=== PATIENT | female | born 1930 | race Caucasian/White ===

== ENCOUNTER 2016-08-24 09:14 | Outpatient (CLI) | payer MEDICARE, BC | END 2016-08-24 09:15 | disposition EMS.NT | DX: S09.90XA Unspecified injury of head, initial encounter (principal); W01.0XXA Fall on same level from slipping, tripping and stumbling without subsequent striking against object, initial encounter; Y92.10 Unspecified residential institution as the place of occurrence of the external cause ==

== ENCOUNTER 2016-08-24 16:15 | Outpatient (CLI) | payer MEDICARE, BC | END 2016-08-24 16:16 | disposition home or self-care (01) | DX: N39.0 Urinary tract infection, site not specified (principal) ==

== ENCOUNTER 2016-10-14 08:00 | Outpatient (CLI) | payer MEDICARE, BC | END 2016-10-14 23:59 | LOC: LAB.WCP 08:00 | PROVIDERS: ATTEND Family Medicine | DX: R35.0 Frequency of micturition (principal) | CPT/HCPCS: 87086 ==

== ENCOUNTER 2017-01-21 08:00 | Outpatient (CLI) | payer MEDICARE, BC | END 2017-01-21 08:01 | disposition home or self-care (01) | LOC: LAB.WCP 08:00 | PROVIDERS: ATTEND Family Medicine | DX: N39.0 Urinary tract infection, site not specified (principal) | CPT/HCPCS: 87077; 87086 ==

== ENCOUNTER 2017-05-10 11:16 | Emergency (ER) | payer MEDICARE, BC ==
--- NOTE | 2017-05-10 12:15 | ED Physician Documentation ---
History of Present Illness - Stated complaint Stated Complaint: ALOC - Chief complaint Chief Complaint: General - History obtained from History obtained from: Patient, Family - History of Present Illness Timing: Today Pain level max: 0 Pain level now: 0 Improved by: nothing Worsened by: nothing - Additonal information Additional information: Patient is an 85-year-old female who has a history of dementia, lives at [facility]. She states that she is very fearful and anxious today. Family states this is happened her in the past. They were unsure what the cause was. At baseline she is knocking on other residents doors as well as eating dirt from the potted plants that she walks by them. 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 : None HEENT: None Psych: Anxiety Musculoskeletal: None - Past Surgical History Past Surgical History: No - Present Medications Home Medications: Ambulatory Orders Medication Instructions Recorded Confirmed Acetaminophen 325 mg PO TID 05/22/14 05/22/14 Felodipine [Felodipine ER] 10 mg PO DAILY 05/22/14 05/22/14 LORazepam [Ativan] 0.5 mg PO TID PRN 05/22/14 05/22/14 Lisinopril [Zestril] 20 mg PO DAILY 05/22/14 05/22/14 Mirtazapine 30 mg PO DAILY 05/22/14 05/22/14 Potassium Chloride 20 meq PO BID 05/22/14 05/22/14 Famotidine [Pepcid] 20 mg PO BID #30 tablet 05/28/14 Sucralfate [Carafate] 1 gm PO DAILY #0 tablet 05/28/14 Cephalexin [Keflex] 500 mg PO Q6H #28 capsule 05/10/17 - Allergies Allergies/Adverse Reactions: Allergies Allergy/AdvReac Type Severity Reaction Status Date / Time citalopram Allergy Unknown Verified 05/22/14 21:07 citalopram hydrobromide * Allergy Unknown Verified 05/22/14 21:07 [From Celexa] peanut Allergy Unknown Verified 05/22/14 21:07 Sulfa (Sulfonamide Allergy Unknown Verified 05/22/14 21:07 Antibiotics) - Social History Does the pt smoke?: No Smoking Status: Never smoker Does the pt drink ETOH?: No Does the pt have substance abuse?: No - Immunizations Immunizations are current?: Yes Immunizations: TDAP >10years/unknown - POLST Patient has POLST: Yes PD ED PE NORMAL - Vitals Vital signs reviewed: Yes - General General: No acute distress, Other (alert, interactive) - HEENT HEENT: Moist mucous membranes, Pharynx benign - Neck Neck: Supple, no meningeal sign - Cardiac Cardiac: RRR, Strong equal pulses - Respiratory Respiratory: No respiratory distress, Clear bilaterally - Abdomen Abdomen: Soft, Non tender, Non distended - Derm Derm: Warm and dry - Extremities Extremities: No edema, No calf tenderness / cord - Psych Psych: Normal mood, Normal affect Results - Vitals Vitals: Vital Signs - 24 hr 05/10/17 05/10/17 11:20 13:56 Temperature 37 C Heart Rate 94 82 Respiratory 18 16 Rate Blood Pressure 122/77 140/70 H O2 Saturation 98 Oxygen O2 Source Room air - Labs Labs: Laboratory Tests 05/10/17 05/10/17 05/10/17 12:45 12:50 12:50 WBC 8.2 RBC 3.99 L Hgb 12.4 Hct 36.9 L MCV 92.3 MCH 31.1 H MCHC 33.7 RDW 14.4 Plt Count 234 MPV 7.6 L Neut # 4.3 Lymph # 2.7 [place] # 0.8 Eos # 0.3 Baso # 0.1 Absolute Nucleated RBC 0.00 Nucleated RBC % 0.0 Sodium 139 Potassium 4.8 Chloride 105 Carbon Dioxide 25 Anion Gap 9.0 BUN 32 H Creatinine 1.2 H Estimated GFR (MDRD) 42 L Glucose 86 Calcium 10.7 H Total Bilirubin 0.6 AST 24 ALT 13 Alkaline Phosphatase 126 H Total Protein 7.5 Albumin 4.2 Globulin 3.3 Albumin/Globulin Ratio 1.3 Lipase 65 H Urine Color YELLOW Urine Clarity HAZY Urine pH 7.0 Ur Specific [place] 1.010 Urine Protein NEGATIVE Urine Glucose (UA) NEGATIVE Urine Ketones NEGATIVE Urine Occult Blood NEGATIVE Urine Nitrite POSITIVE H Urine Bilirubin NEGATIVE Urine Urobilinogen 0.2 (NORMAL) Ur Leukocyte Esterase TRACE H Urine RBC 0-5 Urine WBC >25 H Urine WBC Clumps PRESENT Ur Squamous Epith Cells NONE SEEN Urine Bacteria Many H Ur Microscopic Review INDICATED Urine Culture Comments INDICATED PD MEDICAL DECISION MAKING - ED course Complexity details: reviewed old records, reviewed results, re-evaluated patient , considered differential, d/w patient, d/w family ED course: Patient is an 85-year-old female who presents to the emergency department with altered mental status, worse than her baseline dementia. She is found to have a UTI. Will treat her for a UTI and follow-up with her doctor. She is well- appearing, nontoxic. Afebrile. No evidence of sepsis. Patient and family counseled regarding signs and symptoms for which I believe and urgent re- evaluation would be necessary. Patient with good understanding of and agreement to plan and is comfortable going home at this time This document was made in part using voice recognition software. While efforts are made to proofread this document, sound alike and grammatical errors may occur. Departure - Departure Disposition: 01 Home, Self Care Clinical Impression: UTI (urinary tract infection) Qualifiers: Urinary tract infection type: acute cystitis Hematuria presence: without hematuria Qualified Code(s): N30.00 - Acute cystitis without hematuria Altered mental status Qualifiers: Altered mental status type: transient alteration of awareness Qualified Code(s) : R40.4 - Transient alteration of awareness Condition: Good Instructions: ED UTI Cystitis Female Follow-Up: Manfred Garcia DO [Primary Care Provider] - Within 1 week Prescriptions: Cephalexin [Keflex] 500 mg PO Q6H #28 capsule Comments: Take all anitbiotics until gone. Return if you worsen. Discharge Date/Time: 05/10/17 13:57
[2017-05-10 13:01] LABS: BASOPHILS # (AUTO) 0.1 10^3/uL (0.0-0.1); BASOPHILS % (AUTO) 1.1 %; EOSINOPHILS # (AUTO) 0.3 10^3/uL (0.0-0.7); EOSINOPHILS % (AUTO) 3.7 %; HCT - HEMATOCRIT 36.9 % (37.0-47.0); HGB - HEMOGLOBIN 12.4 g/dL (12.0-16.0); LYMPHOCYTES # (AUTO) 2.7 10^3/uL (1.5-3.5); MEAN CORPUSCULAR HEMOGLOBIN 31.1 pg (27.0-31.0); MEAN CORPUSCULAR HGB CONC 33.7 g/dL (32.0-36.0); MEAN CORPUSCULAR VOLUME 92.3 fL (81.0-99.0); MEAN PLATELET VOLUME 7.6 fL (7.9-10.8); MONOCYTES # (AUTO) 0.8 10^3/uL (0.0-1.0); MONOCYTES % (AUTO) 9.5 %; NEUTROPHILS # (AUTO) 4.3 10^3/uL (1.5-6.6); NEUTROPHILS % (AUTO) 52.7 %; RED BLOOD COUNT 3.99 10^6/uL (4.20-5.40); RED CELL DISTRIBUTION WIDTH 14.4 % (12.0-15.0); UNCORRECTED WHITE BLOOD COUNT 8.2 x10^3/uL; WHITE BLOOD COUNT 8.2 x10^3/uL (4.8-10.8)
[2017-05-10 13:13] LABS: ALBUMIN/GLOBULIN RATIO 1.3 (1.0-2.2); BILIRUBIN,TOTAL 0.6 mg/dL (0.2-1.0); CALCIUM 10.7 mg/dL (8.5-10.3); CREATININE 1.2 mg/dL (0.4-1.0); POTASSIUM 4.8 mmol/L (3.5-5.0); TOTAL PROTEIN 7.5 g/dL (6.7-8.2)
[2017-05-10 13:17] LABS: BILIRUBIN,URINE NEGATIVE (NEGATIVE)
[2017-05-10 13:18] LABS: UA w/ MICROSCOPIC CHARGE YES
[2017-05-10] MEDS ORDERED: cefTRIAXone 1 GM VIAL IM STA (13:24)
[2017-05-10] MEDS ORDERED: LORazepam 0.5 MG TABLET PO STA (13:27)
[2017-05-10] MEDS ORDERED: LIDOCAINE 1% 2 ML VIAL ONE (13:35)
[2017-05-10 13:57] VITALS: BP 140/70
[2017-05-10 14:01] LABS: UR CULTURE IF IND INDICATED; WBC,URINE >25 /HPF (0-5)
== END 2017-05-10 13:57 | disposition home or self-care (01) ==
LOC: ED 11:16
DX: N30.00 Acute cystitis without hematuria (principal); I10 Essential (primary) hypertension; F03.90 Unspecified dementia, unspecified severity, without behavioral disturbance, psychotic disturbance, mood disturbance, and anxiety
CPT/HCPCS: 36415; 51701; 80053; 81001; 83690; 85025; 87086; 96372; 99283; 99284; A9270; 81003; 87077

== ENCOUNTER 2017-05-20 08:00 | Outpatient (CLI) | payer MEDICARE, BC | END 2017-05-20 23:59 | disposition home or self-care (01) | LOC: LAB.R 08:00 | PROVIDERS: ATTEND Family Medicine | DX: N39.0 Urinary tract infection, site not specified (principal) | CPT/HCPCS: 87077; 87086 ==

== ENCOUNTER 2017-06-21 08:46 | Outpatient (CLI) | payer MEDICARE, BC | END 2017-06-21 08:47 | disposition critical access hospital (66) | LOC: EMS 08:46 | PROVIDERS: ATTEND Surgery | DX: S09.90XA Unspecified injury of head, initial encounter (principal); W19.XXXA Unspecified fall, initial encounter; Y92.099 Unspecified place in other non-institutional residence as the place of occurrence of the external cause | CPT/HCPCS: A0425; A0429 ==

== ENCOUNTER 2017-06-21 09:03 | Emergency (ER) | payer MEDICARE, BC ==
--- NOTE | 2017-06-21 09:15 | ED Physician Documentation ---
History of Present Illness - Stated complaint Stated Complaint: FALL - Chief complaint Chief Complaint: Trauma Hd/Nk - Additonal information Additional information: hx from pt 85 female unwitnessed fall at asisted living R periorbital trauma EMS states facility said pt on blood thinner but not on med list pt does not recall the event - she says she does and then explains how she was playing bridge with the girls and was walking through the living room etc (but was alone in her room) she denies BURNETT neck pain CP AP numbness and weakness no recent fever cough NVD that she recalls POLST states DNR limited Review of Systems Constitutional: denies: Fever Ears: denies: Drainage/discharge Nose: denies: Epistaxis GI: denies: Abdominal Pain, Nausea, Vomiting : denies: Dysuria Musculoskeletal: denies: Neck pain, Back pain, Extremity pain, Joint pain Neurologic: reports: Head injury. 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 HEENT: None Psych: Anxiety Musculoskeletal: None - Past Surgical History Past Surgical History: No - Present Medications Home Medications: Ambulatory Orders Medication Instructions Recorded Confirmed Acetaminophen 325 mg PO TID 05/22/14 05/22/14 Felodipine [Felodipine ER] 10 mg PO DAILY 05/22/14 05/22/14 LORazepam [Ativan] 0.5 mg PO TID PRN 05/22/14 05/22/14 Lisinopril [Zestril] 20 mg PO DAILY 05/22/14 05/22/14 Mirtazapine 30 mg PO DAILY 05/22/14 05/22/14 Potassium Chloride 20 meq PO BID 05/22/14 05/22/14 Famotidine [Pepcid] 20 mg PO BID #30 tablet 05/28/14 Sucralfate [Carafate] 1 gm PO DAILY #0 tablet 05/28/14 Cephalexin [Keflex] 500 mg PO Q6H #28 capsule 05/10/17 - Allergies Allergies/Adverse Reactions: Allergies Allergy/AdvReac Type Severity Reaction Status Date / Time citalopram Allergy Unknown Verified 06/21/17 09:09 citalopram hydrobromide * Allergy Unknown Verified 06/21/17 09:09 [From Celexa] peanut Allergy Unknown Verified 06/21/17 09:09 Sulfa (Sulfonamide Allergy Unknown Verified 06/21/17 09:09 Antibiotics) - Social History Does the pt smoke?: No Smoking Status: Never smoker Does the pt drink ETOH?: No Does the pt have substance abuse?: No - Immunizations Immunizations are current?: Yes Immunizations: TDAP >10years/unknown - POLST Patient has POLST: Yes PD ED PE NORMAL - Vitals Vital signs reviewed: Yes - HEENT HEENT: PERRL (pupils 2 no hyphema no proptosis), EOMI. No: Atraumatic (large R periorbital bruising and swelling) - Neck Neck: No bony TTP (but given age and mechansim will image) - Cardiac Cardiac: RRR - Respiratory Respiratory: No respiratory distress, Clear bilaterally - Abdomen Abdomen: Soft, Non tender - Derm Derm: Other (facial brusing) - Neuro Neuro: rack washer 2-12 intact, No motor deficit, No sensory deficit, Normal speech. No : Alert and oriented X 3 (seems confused cannot recall event) Eye Opening: Spontaneous Motor: Obeys Commands Verbal: Confused GCS Score: 14 Results - Vitals Vitals: Vital Signs - 24 hr 06/21/17 06/21/17 09:04 10:28 Temperature 36.4 C L Heart Rate 83 71 Respiratory 20 18 Rate Blood Pressure 136/91 H 162/80 H O2 Saturation 96 98 Oxygen O2 Source Room air - EKG (time done) 0912 Rate: Rate (enter#) (approx 80) QRS: Poor R wave progression Ischemia: Q waves (inferior) Computer interpretation: Disagree with computer - Labs Labs: Laboratory Tests 06/21/17 06/21/17 06/21/17 09:05 09:13 09:13 WBC 8.5 RBC 4.12 L Hgb 12.7 Hct 38.2 MCV 92.8 MCH 30.9 MCHC 33.3 RDW 14.3 Plt Count 223 MPV 7.9 Neut # 4.9 Lymph # 2.5 [place] # 0.8 Eos # 0.2 Baso # 0.1 Absolute Nucleated RBC 0.00 Nucleated RBC % 0.0 Whole Blood INR 1.1 Sodium 139 Potassium 4.5 Chloride 102 Carbon Dioxide 25 Anion Gap 12.0 BUN 27 H Creatinine 1.2 H Estimated GFR (MDRD) 42 L Glucose 102 H Calcium 10.8 H Troponin I Urine Color Urine Clarity Urine pH Ur Specific [place] Urine Protein Urine Glucose (UA) Urine Ketones Urine Occult Blood Urine Nitrite Urine Bilirubin Urine Urobilinogen Ur Leukocyte Esterase Ur Microscopic Review Urine Culture Comments 06/21/17 06/21/17 09:13 10:15 WBC RBC Hgb Hct MCV MCH MCHC RDW Plt Count MPV Neut # Lymph # [place] # Eos # Baso # Absolute Nucleated RBC Nucleated RBC % Whole Blood INR Sodium Potassium Chloride Carbon Dioxide Anion Gap BUN Creatinine Estimated GFR (MDRD) Glucose Calcium Troponin I < 0.04 Urine Color YELLOW Urine Clarity CLEAR Urine pH 7.0 Ur Specific [place] 1.020 Urine Protein NEGATIVE Urine Glucose (UA) NEGATIVE Urine Ketones NEGATIVE Urine Occult Blood NEGATIVE Urine Nitrite NEGATIVE Urine Bilirubin NEGATIVE Urine Urobilinogen 0.2 (NORMAL) Ur Leukocyte Esterase NEGATIVE Ur Microscopic Review NOT INDICATED Urine Culture Comments NOT INDICATED - Rads (name of study) CTH Radiology: See rad report (right frontal scalp contusion, no fx, no ICH, diffuse cerebral volume loss, chonic small vessel ischemic changes) CT facial Radiology: See rad report (no fx, R supraorbital and nasal periorbital STS, no retrobulbar hematoma) CT CS Radiology: See rad report (no fx, angelia bony facet fusion, mild to mod angelia facet OA, multilevel cervical degen changes, multilevel stenosis) PD MEDICAL DECISION MAKING - ED course ED course: unwitnessed fall NSR and labs nl or baseline - so less likely to be sycnope likely trip and fall large facial bruising but neg CT scans will dc Departure - Departure Disposition: 01 Home, Self Care Clinical Impression: Facial contusion Qualifiers: Encounter type: initial encounter Qualified Code(s): S00.83XA - Contusion of other part of head, initial encounter Head injury Qualifiers: Encounter type: initial encounter Qualified Code(s): S09.90XA - Unspecified injury of head, initial encounter Fall Qualifiers: Encounter type: initial encounter Qualified Code(s): W19.XXXA - Unspecified fall, initial encounter Condition: Good Instructions: ED Head Injury Closed, ED Contusion Face Follow-Up: Manfred Garcia DO [Primary Care Provider] - Comments: Thankfully the CT scans do not show any skull fracture, facial fractures, spine fracture or brain bleeding. The bruising and swelling will likely take several weeks to resolve. Recommend cold compresses for the swelling and tylenol for the pain. It was not clear why she fell so we did blood work, a urine test and an EKG all of which were fine (or unchanged for you) So I think it is safe for you to go home. Even though the CT scans were OK, it would be prudent to have a responsible adult watch you carefully for the next 48 hr - to monitor for any changes and to help with any transfers or ambulation. Return to the ER if worse. Else follow up with your PMD for a recheck within the next week
[2017-06-21 09:19] LABS: BASOPHILS # (AUTO) 0.1 10^3/uL (0.0-0.1); BASOPHILS % (AUTO) 0.8 %; EOSINOPHILS # (AUTO) 0.2 10^3/uL (0.0-0.7); EOSINOPHILS % (AUTO) 2.4 %; HGB - HEMOGLOBIN 12.7 g/dL (12.0-16.0); LYMPHOCYTES # (AUTO) 2.5 10^3/uL (1.5-3.5); LYMPHOCYTES % (AUTO) 29.9 %; MEAN CORPUSCULAR HEMOGLOBIN 30.9 pg (27.0-31.0); MEAN CORPUSCULAR HGB CONC 33.3 g/dL (32.0-36.0); MEAN CORPUSCULAR VOLUME 92.8 fL (81.0-99.0); MEAN PLATELET VOLUME 7.9 fL (7.9-10.8); MONOCYTES # (AUTO) 0.8 10^3/uL (0.0-1.0); MONOCYTES % (AUTO) 8.8 %; NEUTROPHILS # (AUTO) 4.9 10^3/uL (1.5-6.6); NEUTROPHILS % (AUTO) 58.1 %; PLT - PLATELET COUNT 223 10^3/uL (130-450); RED BLOOD COUNT 4.12 10^6/uL (4.20-5.40); RED CELL DISTRIBUTION WIDTH 14.3 % (12.0-15.0); WHITE BLOOD COUNT 8.5 x10^3/uL (4.8-10.8)
[2017-06-21 09:27] LABS: CALCIUM 10.8 mg/dL (8.5-10.3); CREATININE 1.2 mg/dL (0.4-1.0)
--- NOTE | 2017-06-21 09:57 | CT Report ---
EXAM: CT MAXILLOFACIAL WITHOUT CONTRAST EXAM DATE: 06/21/2017 09:36 AM. CLINICAL HISTORY: Fall, head injury, R periorbital swelling and bruising. COMPARISONS: CT head and cervical spine today. TECHNIQUE: Thin-section axial images were acquired of the face without contrast. Post-processing: Cor onal and sagittal reformats. Other: None. In accordance with CT protocol optimization, one or more of the following dose reduction techniques w ere utilized for this exam: automated exposure control, adjustment of mA and/or KV based on patient s ize, or use of iterative reconstructive technique. FINDINGS: Soft Tissue: No mass or fluid collection.The infratemporal fossa and parapharyngeal spaces are unrema rkable. Orbits: Globes are symmetric. Right supraorbital and nasal periorbital soft tissue swelling. No retro bulbar hematoma. Bones: No fracture or bone lesion. Temporomandibular Joints: The temporomandibular joints are symmetric and normally located. Sinuses: Normal. No mucosal thickening or fluid levels. Other: Cervical spine degenerative changes are discussed in the report for the cervical spine CT. IMPRESSION: 1. Right supraorbital and nasal periorbital soft tissue swelling without retrobulbar hematoma. 2. No facial bone fracture. [facility] Referring Provider Line: [phone] SITE ID: [id number]
--- NOTE | 2017-06-21 09:57 | CT Report ---
EXAM: CT CERVICAL SPINE WITHOUT CONTRAST DATE: 06/21/2017 09:36 AM. HISTORY: Fall, head injury. COMPARISONS: CT head and facial bones today. CT cervical spine 12/12/2010. TECHNIQUE: Thin-section axial images were acquired of the cervical spine without contrast. Post-proce ssing: Coronal and sagittal reformats. Other: None. In accordance with CT protocol optimization, one or more of the following dose reduction techniques w ere utilized for this exam: automated exposure control, adjustment of mA and/or KV based on patient s ize, or use of iterative reconstructive technique. FINDINGS: Alignment: Minimal left convex cervical and right convex upper thoracic spine curvature. Minimal 1 mm spondylotic anterolisthesis C4 on C5, C6 on C7, T1 on T2. Bones: No fracture or focal bone lesion from the craniocervical junction through T3. Interspace Levels/Facets: Mild osteoarthritis at the pre-dens interval. Disk height loss and endplate ossified formation indicating mild degenerative disk disease C2-C3 through C6-C7. Moderate degenerat lori disk disease at T2-T3 and T3-T4. Bony facet fusion bilaterally at C4-C5. Moderate facet narrowing and hypertrophy bilaterally C2-C3, C3-C4, C5-C6, C6-C7. Right greater than left facet bony fusion at C7-T1. Mild bilateral facet osteoarthritis at T1-T2, T2-T3. Bony foraminal stenosis which is mild on the right and moderate on the left at C2-C3, moderate bilaterally at C3-C4, moderate bilaterally at C4-C5, moderate bilaterally at C5-C6, mild bilaterally at C6-C7. Musculature: Normal. No fatty atrophy. Other: The paravertebral and prevertebral soft tissues are unremarkable. The lung apices are clear. IMPRESSION: 1. No fracture from the craniocervical junction through T3. 2. Bilateral bony facet fusion C4-C5 and C7-T1. 3. 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 4. Mild multilevel cervical degenerative disk disease. 5. Multilevel bilateral bony foraminal stenosis in the upper to mid cervical spine. [facility] Referring Provider Line: [phone] SITE ID: [id number]
--- NOTE | 2017-06-21 09:57 | CT Preliminary Report ---
Exam: CT FACIAL BONES W/O IMPRESSION: 1. Right supraorbital and nasal periorbital soft tissue swelling without retrobulbar hematoma. 2. No facial bone fracture. [facility] SITE ID: [id number]
--- NOTE | 2017-06-21 09:57 | CT Report ---
EXAM: CT HEAD EXAM DATE: 06/21/2017 09:36 AM. CLINICAL HISTORY: Fall, head injury, large right frontal scalp hematoma. COMPARISON: CT facial bones and cervical spine today. CT head 12/12/2010. TECHNIQUE: Multiaxial CT images were obtained from the foramen magnum to the vertex. Reformats: Coron al. IV contrast: None. In accordance with CT protocol optimization, one or more of the following dose reduction techniques w ere utilized for this exam: automated exposure control, adjustment of mA and/or KV based on patient s ize, or use of iterative reconstructive technique. FINDINGS: Parenchyma: Mild patchy hypodensity in the bilateral cerebral white matter is consistent with chronic small vessel ischemic change. No high density lesions. No mass effect. Clarke-white differentiation is intact. No midline shift. Extraaxial Spaces: Mild generalized sulcal prominence. No subdural or epidural collections identified . Ventricles: Mild generalized ventriculomegaly. Sinuses and Orbits: Imaged paranasal sinuses, orbits, and mastoids show no significant abnormality. Bones: No evidence of fracture or calvarial defect. Minimal hyperostosis frontalis interna. Other: Moderate right supraorbital scalp hematoma with extension to the nasal periorbital region. IMPRESSION: 1. Anterior right frontal/medial paranasal scalp contusion without skull fracture. 2. No intracranial hemorrhage. 3. Mild diffuse cerebral volume loss. Mild patchy chronic small vessel ischemic change in the cerebra l white matter. [facility] Referring Provider Line: [phone] SITE ID: [id number]
[2017-06-21 10:24] LABS: BILIRUBIN,URINE NEGATIVE (NEGATIVE); GLUCOSE, URINE (UA) NEGATIVE (NEGATIVE); KETONES,URINE (UA) NEGATIVE (NEGATIVE); LEUKOCYTE ESTERASE, URINE NEGATIVE (NEGATIVE); NITRITE,URINE NEGATIVE (NEGATIVE); OCCULT BLOOD,URINE NEGATIVE (NEGATIVE); PROTEIN,URINE NEGATIVE (NEGATIVE); UROBILINOGEN,URINE 0.2 (NORMAL) E.U./dL (NORMAL)
[2017-06-21 10:25] LABS: CLARITY,URINE CLEAR (CLEAR)
[2017-06-21 10:28] VITALS: BP 162/80
== END 2017-06-21 11:24 | disposition home or self-care (01) ==
LOC: EDUNIT# → EDBD → ED 09:03 → EDBD 09:03 → ED 11:24
DX: S00.11XA Contusion of right eyelid and periocular area, initial encounter (principal); S09.90XA Unspecified injury of head, initial encounter; W19.XXXA Unspecified fall, initial encounter; Y92.129 Unspecified place in nursing home as the place of occurrence of the external cause; I10 Essential (primary) hypertension; F03.90 Unspecified dementia, unspecified severity, without behavioral disturbance, psychotic disturbance, mood disturbance, and anxiety
CPT/HCPCS: 36415; 70450; 70486; 72125; 80048; 81001; 81003; 84484; 85025; 85610; 87086; 93005; 99283; 99284

== ENCOUNTER 2017-09-16 11:59 | Outpatient (CLI) | payer MEDICARE, BC ==
[2017-09-16 19:31] LABS: BASOPHILS % (AUTO) 0.6 %; EOSINOPHILS # (AUTO) 0.2 10^3/uL (0.0-0.7); EOSINOPHILS % (AUTO) 2.2 %; HGB - HEMOGLOBIN 12.4 g/dL (12.0-16.0); LYMPHOCYTES # (AUTO) 2.4 10^3/uL (1.5-3.5); MEAN CORPUSCULAR HEMOGLOBIN 30.7 pg (27.0-31.0); MEAN CORPUSCULAR VOLUME 92.9 fL (81.0-99.0); MEAN PLATELET VOLUME 8.5 fL (7.9-10.8); MONOCYTES # (AUTO) 0.8 10^3/uL (0.0-1.0); MONOCYTES % (AUTO) 11.1 %; NEUTROPHILS # (AUTO) 4.1 10^3/uL (1.5-6.6); NEUTROPHILS % (AUTO) 54.1 %; PLT - PLATELET COUNT 280 10^3/uL (130-450); RED BLOOD COUNT 4.04 10^6/uL (4.20-5.40); RED CELL DISTRIBUTION WIDTH 14.1 % (12.0-15.0); WHITE BLOOD COUNT 7.5 x10^3/uL (4.8-10.8)
[2017-09-16 19:32] LABS: ALBUMIN/GLOBULIN RATIO 1.2 (1.0-2.2); BILIRUBIN,TOTAL 0.4 mg/dL (0.2-1.0); CALCIUM 10.2 mg/dL (8.5-10.3); TOTAL PROTEIN 7.3 g/dL (6.7-8.2)
== END 2017-09-16 12:00 | disposition home or self-care (01) ==
LOC: LAB.WCP 11:59
PROVIDERS: ATTEND Physician Assistant
DX: R41.82 Altered mental status, unspecified (principal); N39.0 Urinary tract infection, site not specified
CPT/HCPCS: 36415; 80053; 85025; 87086

== ENCOUNTER 2018-01-16 12:39 | Outpatient (CLI) | payer MEDICARE, BC | END 2018-01-16 12:40 | disposition critical access hospital (66) | LOC: EMS 12:39 | PROVIDERS: ATTEND Surgery | DX: S09.90XA Unspecified injury of head, initial encounter (principal); S79.911A Unspecified injury of right hip, initial encounter; W18.30XA Fall on same level, unspecified, initial encounter; Y92.099 Unspecified place in other non-institutional residence as the place of occurrence of the external cause ==

== ENCOUNTER 2018-01-16 12:59 | Emergency (ER) | payer MEDICARE, BC ==
--- NOTE | 2018-01-16 14:20 | ED Physician Documentation ---
PD HPI HEAD INJURY - Stated complaint Stated Complaint: FALL - Chief complaint Chief Complaint: Trauma Hd/Nk - History obtained from History obtained from: Patient, Family (daughter), EMS - History of Present Illness Mechanism of head injury: Fell (This is a tim but demented 87-year-old woman who tells me "I just want to go home." Reportedly she fell at assisted living and there is concern for head or right hip injury. Patient has no complaints and denies pain.) Review of Systems Unable to obtain: Confused, Dementia PD PAST MEDICAL HISTORY - Past Medical History Cardiovascular: Hypertension VP EMERGING MEDIA: None : None HEENT: None Psych: Anxiety Musculoskeletal: None - Past Surgical History Past Surgical History: No - Present Medications Home Medications: Ambulatory Orders Medication Instructions Recorded Confirmed Acetaminophen 325 mg PO TID 05/22/14 05/22/14 Felodipine [Felodipine ER] 10 mg PO DAILY 05/22/14 05/22/14 LORazepam [Ativan] 0.5 mg PO TID PRN 05/22/14 05/22/14 Lisinopril [Zestril] 20 mg PO DAILY 05/22/14 05/22/14 Mirtazapine 30 mg PO DAILY 05/22/14 05/22/14 Potassium Chloride 20 meq PO BID 05/22/14 05/22/14 Famotidine [Pepcid] 20 mg PO BID #30 tablet 05/28/14 Sucralfate [Carafate] 1 gm PO DAILY #0 tablet 05/28/14 Cephalexin [Keflex] 500 mg PO Q6H #28 capsule 05/10/17 Sertraline [Zoloft] 01/16/18 - Allergies Allergies/Adverse Reactions: Allergies Allergy/AdvReac Type Severity Reaction Status Date / Time citalopram Allergy Unknown Verified 06/21/17 09:09 citalopram hydrobromide * Allergy Unknown Verified 06/21/17 09:09 [From Celexa] peanut Allergy Unknown Verified 06/21/17 09:09 Sulfa (Sulfonamide Allergy Unknown Verified 01/16/18 13:28 Antibiotics) - Social History Does the pt smoke?: No Smoking Status: Never smoker Does the pt drink ETOH?: No Does the pt have substance abuse?: No - Immunizations Immunizations are current?: Yes Immunizations: TDAP >10years/unknown - POLST Patient has POLST: Yes PD ED PE NORMAL - Vitals Vital signs reviewed: Yes - General General: Other (She is alert and oriented to person only. She does not remember any accident.) - HEENT HEENT: PERRL - Neck Neck: Supple, no meningeal sign, No bony TTP - Back Back: No spinal TTP - Extremities Extremities: Other (The right hip, pelvis, and the remainder of her extremities are all nontender. She transfers and bears weight without evidence of pain.) - Neuro Neuro: manifest clerk 2-12 intact Eye Opening: Spontaneous Motor: Obeys Commands Verbal: Confused GCS Score: 14 - Psych Psych: Normal mood, Normal affect Results - Vitals Vitals: Vital Signs - 24 hr 01/16/18 01/16/18 13:10 15:38 Temperature 35.7 C L Heart Rate 90 90 Respiratory 20 18 Rate Blood Pressure 135/76 H 140/78 H O2 Saturation 97 98 Oxygen O2 Source Room air - Rads (name of study) CT Head Radiology: EMP read contemporaneously (atrophy, NAD) R hip XR Radiology: EMP read contemporaneously (neg) R knee XR Radiology: EMP read contemporaneously (She is pretty terrible osteoarthritis and a little chip fracture of the medial tibial plateau.) PD MEDICAL DECISION MAKING - ED course ED course: A 7-year-old woman after an unremarkable active fall at assisted living. Potential head or hip injury. Her exam suggests there is no significant hip injury and her images were negative. Went back into discuss results with her and her daughter and she was now complaining of a lot of right knee pain. This had been nontender on initial evaluation but now she was playing a lot anytime I touched it. It was not deformed or warm. She was sent for x-ray of this as well. On that study she did have a medial tibial plateau fracture that was small and nondisplaced. Case was discussed by phone with the on-call orthopedist, Dr. Umaña who felt it was nonoperative and from her perspective could be discharged , I discussed this with the daughter who felt she would be safe back at [facility] in a splint up on a walker. - Sepsis Event Vital Signs: Vital Signs - 24 hr 01/16/18 01/16/18 13:10 15:38 Temperature 35.7 C L Heart Rate 90 90 Respiratory 20 18 Rate Blood Pressure 135/76 H 140/78 H O2 Saturation 97 98 Oxygen O2 Source Room air Departure - Departure Disposition: 01 Home, Self Care Clinical Impression: Fall Qualifiers: Encounter type: initial encounter Qualified Code(s): W19.XXXA - Unspecified fall, initial encounter Head injury Qualifiers: Encounter type: initial encounter Qualified Code(s): S09.90XA - Unspecified injury of head, initial encounter Right medial tibial plateau fracture Qualifiers: Encounter type: initial encounter Fracture type: closed Qualified Code(s): S82.131A - Displaced fracture of medial condyle of right tibia, initial encounter for closed fracture Condition: Good Record reviewed to determine appropriate education?: Yes Instructions: ED Head Injury Closed Follow-Up: [facility] [Provider Group] - Within 1 week Comments: Your blood pressure was elevated today on check into the emergency department. This does not mean that you have hypertension, it is a common phenomenon to come to the emergency department and have elevated blood pressure. I recommend that you see your primary care physician within the week to have it rechecked when you are feeling better. Tylenol as needed for pain. Return if worse.
--- NOTE | 2018-01-16 15:12 | CT Report ---
Reason: head inj Procedure Date: 01/16/2018 Accession Number: [id number] / [id number] Procedure: CT - Head W/O CPT Code: FULL RESULT: EXAM: CT HEAD EXAM DATE: 01/16/2018 02:49 PM. CLINICAL HISTORY: Head injury. Fall with bruising to right side of head. COMPARISON: HEAD W/O 06/21/2017 9:27 AM. TECHNIQUE: Multiaxial CT images were obtained from the foramen magnum to the vertex. Reformats: Sagittal and coronal. IV contrast: None. In accordance with CT protocol optimization, one or more of the following dose reduction techniques were utilized for this exam: automated exposure control, adjustment of mA and/or KV based on patient size, or use of iterative reconstructive technique. FINDINGS: Parenchyma: Similar appearance and distribution of mild to moderate patchy white matter hypoattenuation, compatible with chronic small vessel ischemic change. No intraparenchymal hemorrhage, mass effect, or CT findings of evolving acute/subacute infarct. Clarke-white differentiation is distinct. Extraaxial Spaces: Mild diffuse sulcal prominence, as before, compatible with generalized atrophy. No subdural or epidural collections identified. Ventricles: Normal in size and position. Sinuses and Orbits: Imaged paranasal sinuses, orbits, and mastoids show no significant abnormality. Bones: No evidence of fracture or calvarial defect. Other: Anterior skin calcifications, as before. The visualized superficial soft tissues are otherwise unremarkable, with no evident focal soft tissue hematoma. IMPRESSION: 1. Mild generalized atrophy and [id number] chronic microvascular angiopathy, as before. 2. No acute intracranial abnormality. [facility]
--- NOTE | 2018-01-16 15:22 | XRAY Report ---
Reason: poss hip inj Procedure Date: 01/16/2018 Accession Number: [id number] / [id number] Procedure: XR - Hip w/Pelvis 2-3V RT CPT Code: FULL RESULT: EXAM: RIGHT HIP AND PELVIS RADIOGRAPHY EXAM DATE: 01/16/2018 03:02 PM. HISTORY: Poss hip inj. COMPARISONS: None. TECHNIQUE: 1 view of the pelvis and 1 view of the right hip. FINDINGS: Bones: Diffuse osteopenia limits sensitivity for the detection of nondisplaced fractures. In addition, evaluation of the left greater trochanter is limited by radiographic technique. No definite displaced acute fracture or dislocation is identified. Joints: Degenerative changes in the visualized portions of the lower lumbar spine. Soft Tissues: Normal. No soft tissue swelling. IMPRESSION: No definite acute displaced fracture or dislocation, noting that osteopenia limits sensitivity for the detection of nondisplaced fractures. If there is high clinical concern for a nondisplaced fracture, or if the patient has persistent clinical symptoms, correlation with cross-sectional imaging may be obtained as clinically indicated. [facility]
[2018-01-16] MEDS ORDERED: ACETAMINOPHEN 325 MG TABLET PO STA (15:30)
--- NOTE | 2018-01-16 17:05 | XRAY Report ---
Reason: knee inj Procedure Date: 01/16/2018 Accession Number: [id number] / [id number] Procedure: XR - Knee 4 View RT CPT Code: FULL RESULT: EXAM: RIGHT KNEE RADIOGRAPHY EXAM DATE: 01/16/2018 04:05 PM. CLINICAL HISTORY: Knee injury COMPARISON: None available. TECHNIQUE: 4 views. FINDINGS: Bones: There is a fracture of the medial corner of the tibial plateau. Joints: There is severe medial compartment joint space narrowing with sclerosis and bony deformity. There are tricompartment osteophytes. There are posterior loose bodies. No joint effusion. There is genu varus. Soft Tissues: Vascular calcifications are present. IMPRESSION: 1. There is a fracture of the medial tibial plateau. 2. There are advanced changes of osteoarthritis. [facility]
[2018-01-16 17:51] VITALS: BP 149/80
== END 2018-01-16 17:51 | disposition home or self-care (01) ==
LOC: EDUNIT# → ED 12:59 → SUPCPDRO 12:59 → ED 17:51
DX: S09.90XA Unspecified injury of head, initial encounter (principal); S82.131A Displaced fracture of medial condyle of right tibia, initial encounter for closed fracture; W18.30XA Fall on same level, unspecified, initial encounter; Y92.099 Unspecified place in other non-institutional residence as the place of occurrence of the external cause; I10 Essential (primary) hypertension; F03.90 Unspecified dementia, unspecified severity, without behavioral disturbance, psychotic disturbance, mood disturbance, and anxiety
CPT/HCPCS: 70450; 73502; 73564; 99283; A9270

== ENCOUNTER 2018-01-18 07:14 | Outpatient (CLI) | payer MEDICARE, BC | END 2018-01-18 07:15 | disposition critical access hospital (66) | LOC: EMS 07:14 | PROVIDERS: ATTEND Surgery | DX: S72.91XA Unspecified fracture of right femur, initial encounter for closed fracture (principal) | CPT/HCPCS: A0425; A0429 ==

== ENCOUNTER 2018-01-18 07:34 | Emergency (ER) | payer MEDICARE, BC ==
--- NOTE | 2018-01-18 08:01 | ED Physician Documentation ---
PD HPI ALTERED MENTAL STATUS - Stated complaint Stated Complaint: CONFUSED - Chief complaint Chief Complaint: General - History obtained from History obtained from: Patient, EMS, Caregiver - History of Present Illness Timing - onset: Other (She has had a steady decline in cognitive function and general strength over the last several weeks to months according to her daughter. This has been worsened recently with fall and is now in injury of her knee. She is having difficulty getting up and around with the knee pain. She did fall again today trying to get across the room on her own. She is supposed to use a walker but has poor compliance due to her dementia.) Timing - duration: Days Timing - details: Gradual onset, Still present Quality / character: Confused, Memory Loss Associated symptoms: No: Fever, Headache, Dyspnea, NVD Contributing factors: Recent injury (tibial plateau injury 2 days ago). No: Anticoagulated Basline status: Confused, Walker, Assisted living. No: Alert and oriented X 3 Recently seen: Emergency Dept Review of Systems Unable to obtain: Dementia Constitutional: denies: Fever Nose: denies: Rhinorrhea / runny nose, Congestion Throat: denies: Sore throat Respiratory: denies: Cough : denies: Dysuria, Frequency Skin: denies: Abrasion (s), Laceration (s) Neurologic: reports: Generalized weakness. 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 : None HEENT: None Psych: Anxiety Musculoskeletal: None - Past Surgical History Past Surgical History: No - Present Medications Home Medications: Ambulatory Orders Medication Instructions Recorded Confirmed Acetaminophen 325 mg PO TID 05/22/14 05/22/14 Felodipine [Felodipine ER] 10 mg PO DAILY 05/22/14 05/22/14 LORazepam [Ativan] 0.5 mg PO TID PRN 05/22/14 05/22/14 Lisinopril [Zestril] 20 mg PO DAILY 05/22/14 05/22/14 Mirtazapine 30 mg PO DAILY 05/22/14 05/22/14 Potassium Chloride 20 meq PO BID 05/22/14 05/22/14 Cephalexin [Keflex] 500 mg PO Q6H #28 capsule 05/10/17 Sertraline [Zoloft] 2 tab DAILY 01/16/18 Cerovite Senior 1 tab DAILY 01/18/18 raNITIdine [Zantac] 150 mg DAILY 01/18/18 01/18/18 - Allergies Allergies/Adverse Reactions: Allergies Allergy/AdvReac Type Severity Reaction Status Date / Time citalopram Allergy Unknown Verified 01/18/18 07:47 citalopram hydrobromide * Allergy Unknown Verified 01/18/18 07:47 [From Celexa] peanut Allergy Unknown Verified 01/18/18 07:47 Sulfa (Sulfonamide Allergy Unknown Verified 01/18/18 07:47 Antibiotics) - Social History Does the pt smoke?: No Smoking Status: Never smoker Does the pt drink ETOH?: No Does the pt have substance abuse?: No - Immunizations Immunizations are current?: Yes Immunizations: TDAP >10years/unknown - POLST Patient has POLST: Yes PD ED PE NORMAL - Vitals Vital signs reviewed: Yes - General General: No: Alert and oriented X 3 (She is alert with eyes open and able to state her name and date of . However she does not know where she is nor the month nor date. This would be more consistent with some dementia and does not seem to have delirium by my assessment.) - HEENT HEENT: Atraumatic, Pharynx benign - Neck Neck: Supple, no meningeal sign, No adenopathy - Cardiac Cardiac: RRR, No murmur - Respiratory Respiratory: Clear bilaterally - Abdomen Abdomen: Soft, Non tender - Back Back: No CVA TTP - Derm Derm: Normal color, Warm and dry - Extremities Extremities: No deformity, No tenderness to palpate, No edema. No: Normal ROM s pain (she does have some limited ROM of the left knee. ) - Neuro Neuro: oven heater helper 2-12 intact, No motor deficit, Normal speech Eye Opening: Spontaneous Motor: Obeys Commands Verbal: Confused GCS Score: 14 Results - Vitals Vitals: Vital Signs - 24 hr 01/18/18 07:34 Temperature 36.3 C L Heart Rate 90 Respiratory 16 Rate Blood Pressure 160/90 H O2 Saturation 97 Oxygen O2 Source Room air - Labs Labs: Laboratory Tests 01/18/18 01/18/18 01/18/18 08:27 08:27 09:05 WBC 7.7 RBC 3.80 L Hgb 12.1 Hct 35.2 L MCV 92.7 MCH 31.8 H MCHC 34.3 RDW 14.2 Plt Count 201 MPV 8.3 Neut # (Auto) 5.9 Lymph # (Auto) 1.0 L [place] # (Auto) 0.7 Eos # (Auto) 0.0 Baso # (Auto) 0.0 Absolute Nucleated RBC 0.00 Nucleated RBC % 0.0 Sodium 138 Potassium 4.3 Chloride 105 Carbon Dioxide 26 Anion Gap 7.0 BUN 39 H Creatinine 1.3 H Estimated GFR (MDRD) 39 L Glucose 103 H Calcium 10.0 Magnesium 1.8 Total Bilirubin 0.6 AST 29 ALT 20 Alkaline Phosphatase 116 Total Protein 6.6 L Albumin 4.1 Globulin 2.5 Albumin/Globulin Ratio 1.6 Lipase 57 H Urine Color YELLOW Urine Clarity CLEAR Urine pH 6.0 Ur Specific [place] 1.015 Urine Protein NEGATIVE Urine Glucose (UA) NEGATIVE Urine Ketones NEGATIVE Urine Occult Blood TRACE-INTA Urine Nitrite NEGATIVE Urine Bilirubin NEGATIVE Urine Urobilinogen 0.2 (NORMAL) Ur Leukocyte Esterase NEGATIVE Ur Microscopic Review NOT INDICATED Urine Culture Comments NOT INDICATED - Rads (name of study) head CT Radiology: Prelim report reviewed (age related changes) chest xray Radiology: Prelim report reviewed (no infiltrates) PD MEDICAL DECISION MAKING - ED course Complexity details: considered differential (She is having general weakness and worse dementia, and now with knee injury, is having difficulty being cared for at [facility] well enough, per their providers and her family. Family is considering [facility] level of care. ), d/w patient, d/w family (The patient's family states she is not able to be cared for well enough at [facility] anymore and would like her placed at [facility]. I will have social work evaluate regarding orders, treatment, payments, etc.) - Sepsis Event Vital Signs: Vital Signs - 24 hr 01/18/18 07:34 Temperature 36.3 C L Heart Rate 90 Respiratory 16 Rate Blood Pressure 160/90 H O2 Saturation 97 Oxygen O2 Source Room air Departure - Departure Disposition: 01 Home, Self Care Clinical Impression: General weakness Fall Qualifiers: Encounter type: initial encounter Qualified Code(s): W19.XXXA - Unspecified fall, initial encounter Dementia Qualifiers: Dementia type: unspecified type Dementia behavioral disturbance: without behavioral disturbance Qualified Code(s): F03.90 - Unspecified dementia without behavioral disturbance Right medial tibial plateau fracture Qualifiers: Encounter type: subsequent encounter Fracture type: closed Fracture healing: with routine healing Qualified Code(s): S82.131D - Displaced fracture of medial condyle of right tibia, subsequent encounter for closed fracture with routine healing Condition: Stable Record reviewed to determine appropriate education?: Yes
[2018-01-18] MEDS ORDERED: SODIUM CHLORIDE 0.9% 1,000 ML IV ONE (08:22)
[2018-01-18 08:46] LABS: ALBUMIN 4.1 g/dL (3.2-5.5); ALBUMIN/GLOBULIN RATIO 1.6 (1.0-2.2); BILIRUBIN,TOTAL 0.6 mg/dL (0.2-1.0); CREATININE 1.3 mg/dL (0.4-1.0); MAGNESIUM 1.8 mg/dL (1.7-2.8); TOTAL PROTEIN 6.6 g/dL (6.7-8.2)
[2018-01-18 08:47] LABS: BASOPHILS % (AUTO) 0.2 %; EOSINOPHILS % (AUTO) 0.6 %; HGB - HEMOGLOBIN 12.1 g/dL (12.0-16.0); LYMPHOCYTES % (AUTO) 13.2 %; MEAN CORPUSCULAR HEMOGLOBIN 31.8 pg (27.0-31.0); MEAN CORPUSCULAR HGB CONC 34.3 g/dL (32.0-36.0); MEAN CORPUSCULAR VOLUME 92.7 fL (81.0-99.0); MEAN PLATELET VOLUME 8.3 fL (7.9-10.8); MONOCYTES # (AUTO) 0.7 10^3/uL (0.0-1.0); MONOCYTES % (AUTO) 9.3 %; NEUTROPHILS # (AUTO) 5.9 10^3/uL (1.5-6.6); NEUTROPHILS % (AUTO) 76.7 %; PLT - PLATELET COUNT 201 10^3/uL (130-450); RED CELL DISTRIBUTION WIDTH 14.2 % (12.0-15.0); WHITE BLOOD COUNT 7.7 x10^3/uL (4.8-10.8)
--- NOTE | 2018-01-18 09:20 | XRAY Report ---
Reason: confused and weak Procedure Date: 01/18/2018 Accession Number: [id number] / [id number] Procedure: XR - Chest 2 View X-Ray CPT Code: 38714 FULL RESULT: EXAM: CHEST RADIOGRAPHY EXAM DATE: 01/18/2018 08:48 AM. CLINICAL HISTORY: Altered mental status and weakness. COMPARISON: CHEST 2 VIEW PA/LAT 05/28/2014. TECHNIQUE: 2 views. FINDINGS: Lungs/Pleura: No focal opacities evident. No pleural effusion. No pneumothorax. The lungs appear hyperinflated. Mediastinum: Moderate enlargement of the cardiac silhouette, increased compared to prior. Tortuous thoracic aorta is similar to prior. Other: Thoracic hyperkyphosis has increased compared to prior; no gross evidence of acute fracture. IMPRESSION: 1. No focal pulmonary opacity. 2. Moderate enlargement of the cardiac silhouette is of uncertain acuity but has significantly increased compared to 2014. [facility]
[2018-01-18 09:22] LABS: BILIRUBIN,URINE NEGATIVE (NEGATIVE); GLUCOSE, URINE (UA) NEGATIVE (NEGATIVE); KETONES,URINE (UA) NEGATIVE (NEGATIVE); LEUKOCYTE ESTERASE, URINE NEGATIVE (NEGATIVE); NITRITE,URINE NEGATIVE (NEGATIVE); OCCULT BLOOD,URINE TRACE-INTA (NEGATIVE); PROTEIN,URINE NEGATIVE (NEGATIVE); UROBILINOGEN,URINE 0.2 (NORMAL) E.U./dL (NORMAL)
[2018-01-18 09:24] LABS: CLARITY,URINE CLEAR (CLEAR)
--- NOTE | 2018-01-18 11:52 | CT Report ---
Reason: report of fall, with confusion Procedure Date: 01/18/2018 Accession Number: [id number] / [id number] Procedure: CT - Head W/O CPT Code: FULL RESULT: EXAM: CT HEAD EXAM DATE: 01/18/2018 10:07 AM. CLINICAL HISTORY: Report of fall, with confusion. COMPARISON: 01/16/2018 TECHNIQUE: Multiaxial CT images were obtained from the foramen magnum to the vertex. Reformats: Sagittal and coronal. IV contrast: None. In accordance with CT protocol optimization, one or more of the following dose reduction techniques were utilized for this exam: automated exposure control, adjustment of mA and/or KV based on patient size, or use of iterative reconstructive technique. FINDINGS: Parenchyma: No intraparenchymal hemorrhage. No evidence of mass, midline shift, or CT findings of acute infarction. Clarke-white differentiation is distinct. Diffuse chronic microangiopathic white matter changes are evident. Extraaxial Spaces: Normal for age. No subdural or epidural collections identified. Ventricles: The ventricles and cortical sulci are enlarged, consistent with age-related tissue loss. Sinuses and orbits: Imaged paranasal sinuses, orbits, and mastoids show no significant abnormality. Bones: No evidence of fracture or calvarial defect. Other: No acute findings compared with 01/18/2018. IMPRESSION: Generalized age-related chronic changes without evidence of acute intracranial abnormality. [facility]
[2018-01-18 18:12] VITALS: BP 165/90
== END 2018-01-18 17:55 | disposition home or self-care (01) ==
LOC: EDUNIT# → ED 07:34
DX: R53.1 Weakness (principal); F03.90 Unspecified dementia, unspecified severity, without behavioral disturbance, psychotic disturbance, mood disturbance, and anxiety; S82.131D Displaced fracture of medial condyle of right tibia, subsequent encounter for closed fracture with routine healing; W18.30XD Fall on same level, unspecified, subsequent encounter; Z91.81 History of falling; I10 Essential (primary) hypertension
CPT/HCPCS: 36415; 51701; 70450; 71046; 80053; 81001; 81003; 83690; 83735; 85025; 87086; 96360; 96361; 99283; 99284